=== PATIENT | female | born 1995 | race Caucasian/White ===

== ENCOUNTER 2016-06-07 04:30 | Inpatient (IN) | payer MEDICAID ==
[~2016-06-07] VITALS: Ht 152.4 cm; Wt 90.7 kg
[2016-06-07] MEDS ORDERED: ZOVIRAX400 MG PO (05:16)
[2016-06-07 05:17] VITALS: BP 132/78; Ht 152.4 cm; Wt 90.7 kg
[2016-06-07] MEDS ORDERED: PRENATAL COMPLE1 TAB PO (05:17)
[2016-06-07 05:38] LABS: HEMOGLOBIN 11.2 g/dL (12-16); MCH 28.6 pg (26.0-34.0); MCV 89.3 fL (80.0-100.0); RBC 3.92 10x6/uL (4.00-5.40); RDW 14.1 % (11.5-14.5); WBC 9.4 10x3/uL (4.8-10.8)
[2016-06-07 06:07] LABS: APPEARANCE HAZY (CLEAR); BILIRUBIN NEGATIVE (NEGATIVE); COLOR YELLOW (YELLOW); GLUCOSE NEGATIVE (NEGATIVE); KETONE NEGATIVE (NEGATIVE); LEUKOCYTE ESTERASE TRACE (NEGATIVE); NITRITE NEGATIVE (NEGATIVE); PROTEIN NEGATIVE (NEGATIVE); UROBILINOGEN NORMAL (NORMAL); WHITE CELLS - URINE 0-5 /hpf (0-5)
--- NOTE | 2016-06-07 18:25 | NUR ---
SITTING UP IN BED. REQUESTED PAIN MEDICATION FOR C/O ACHING IN BACK AND ABDOMEN. MOTRIN 600 MG GIVEN PO AFTER DISCUSSING MEDICATION OPTIONS. 07/26 PAIN AT THIS TIME. HAS BEEN UP TO VOID AND HAS USED BETADINE SQUIRT BOTTLE FOR TRELL-CARE. CURRENTLY IN NURSERY. DINNER TRAY SERVED. SIDE RAILS UP X 2, CALL LIGHT IN REACH. TUCKS PADS GIVEN FOR PRN USE ON EXTERNAL HEMORRHOID NOTED AFTER DELIVERY. INSTRUCTED ON USE.
[2016-06-07 19:31] VITALS: BP 124/62
--- NOTE | 2016-06-07 19:31 | NUR ---
AWAKE AND ORIENTED. SKIN WARM AND DRY. LYING ON BACK WITH HOB AT 45 DEGREES. VISITORS IN ROOM HOLDING . PT. CHEERFUL RELATING THAT SHE HAD A "GOOD LABOR AND DELIVERY". BREATH SOUNDS CLEAR AND BOWEL SOUNDS AUDIBLE. FUNDUS FIRM U/U. PT. RELATES THAT SHE FEELS HER BLADDER IS FULL BUT HAS "PUT OFF" GETTING UP. INSTRUCTED PT. ON VOIDING WHENEVER SHE FEELS BLADDER FULLNESS AND ALSO DISCUSSED REASONS. PT. STATES UNDERSTANDING. RELATES THAT MOTRIN WAS EFFECTIVE WITH HER PAIN AND SHE RATES 2 OF 10 AND STATES IT IS OCCASIONAL CRAMPING. DENIES ANY PAIN IN LOWER EXTREMITIES AND HAS GOOD ROM OF ALL EXTREMITIES. INQUIRED IF PT. DESIRED ANY ADDITIONAL WATER OR COLA OR NOURISHMENTS OF ANY KIND. PT. STATES THAT SHE IS OK AT THIS TIME BUT MIGHT LIKE SOMETHING BEFORE BEDTIME. INFORMED TO CALL THIS NURSE WITH ANY NEEDS. FOB IN ROOM WITH PT. GELACIO SHEPHERD.
--- NOTE | 2016-06-07 20:30 | NUR ---
PT. LYING IN BED WITH HOB AT 45 DEGREES. VISITORS AT BEDSIDE. INQUIRED IF PT. HAD BEEN UP TO BATHROOM . SHE STATED THAT SHE HAD. OFFERED NOURISHMENTS ALTHOUGH PT. DECLINED. SIDE RAILS UP X 2.
--- NOTE | 2016-06-07 21:21 | NUR ---
SITTING UP IN BED PREPARING TO BREASFEED. NBN NURSERY IN ROOM GIVING INSTRUCTIONS ON .
--- NOTE | 2016-06-07 22:00 | NUR ---
PT. DESIRES INFANT RETURNED TO NBN. STATES SHE IS READY FOR SOMETHING ELSE TO EAT. AVAILABILITY REVIEWED WITH PT. AND SHE MADE SELECTIONS. PT. ALSO STATES DESIRE TO SHOWER. LINENS PROVIDED.
--- NOTE | 2016-06-07 22:12 | NUR ---
PT. STATES SHE DESIRES TO GO AHEAD WITH PAIN MED AND THEN SHE WILL SLEEP UNTIL INFANT RETURNS. RATES PAIN A 4 OF 10 ON PAIN SCALE.
--- NOTE | 2016-06-07 22:17 | NUR ---
PAIN MED GIVEN ORDERED. EATING ON SANDWICH AND GRAPES PROVIDED EARLIER.
--- NOTE | 2016-06-07 22:50 | NUR ---
CALLED TO ROOM TO EVALUATE PT. BLEEDING. PT. WAS UP IN BATHROOM AND HAD DRIPPED SMALL SPOTS OF BLOOD ON WAY TO BATHROOM. REASSURED PT. THAT DUE TO BLOOD POOLING SHE MAY NOTICE OVERFLOW OF PAD WHEN GETTING UP. PT. DESIRES TO SHOWER. ENCOURAGED TO TAKE TEPID SHOWER AND NOT HOT TO AVOID FEELING FAINT OR DIZZY. FOB IN ROOM WITH PT. PT. DENIES ANY PAIN AT THIS TIME. ENCOURAGED PT. TO WEAR TWO PADS AT A TIME TODAY AND TOMORROW TO AVOID SPILLING OVER. PT. STATES UNDERSTANDING.
--- NOTE | 2016-06-07 23:17 | NUR ---
STANDING AT SINK BRUSHING HAIR. STATES SHE IS PAIN FREE AND FEELS "GOOD". FOB REMAINS IN ROOM. PT. DENIES ANY NEEDS.
--- NOTE | 2016-06-08 00:15 | NUR ---
BABY TO MOTHER'S ROOM FOR FEEDING PER NBN STAFF.
--- NOTE | 2016-06-08 01:00 | NUR ---
PT. HAS COMPLETED AND DESIRES INFANT RETURNED TO NBN. DESIRES TO SLEEP. DENIES ANY PAIN AT THIS TIME. FOB SLEEPING ON SOFA.
--- NOTE | 2016-06-08 02:45 | NUR ---
LYING ON RT. SIDE WITH EYES CLOSED. RESPIRATIONS REGULAR. FOB SLEEPING ON SOFA.
--- NOTE | 2016-06-08 03:20 | NUR ---
INFANT TO ROOM FOR . PT. AWAKENED. ID OF AND MOTHER MATCHED. FOB SLEEPING ON SOFA.
--- NOTE | 2016-06-08 04:10 | NUR ---
INFANT RETURNED TO NBN. PT. DENIES ANY NEEDS. STATES IS WELL. FOB SLEEPING ON SOFA.
[2016-06-08 05:12] LABS: RAPID PLASMA REAGIN Non Reactive (Non Reactive)
--- NOTE | 2016-06-08 06:05 | NUR ---
LYING ON RT SIDE WITH EYES CLOSED. RESPIRATIONS REGULAR. FOB SLEEPING ON SOFA.
--- NOTE | 2016-06-08 06:37 | NUR ---
INFANT TRANSPORTED TO ROOM VIA OPEN CRIB. ID BAND VERIFIED WITH INFANT & MOTHER, INFANT PLACED IN MOTHER'S ARMS FOR FEEDING. DENIES NEEDS AT THIS TIME.
[2016-06-08 06:59] LABS: BASOPHILS 0.2 % (0.0-2.0); EOSINOPHILS 1.7 % (0-7); HEMATOCRIT 33.9 % (36.0-48.0); HEMOGLOBIN 10.7 g/dL (12-16); IMMATURE GRANULOCYTES 0.3 % (0-5); LYMPHOCYTES 19.8 % (15-50); MCH 28.4 pg (26.0-34.0); MCHC 31.6 g/dL (31.0-37.0); MCV 89.9 fL (80.0-100.0); MEAN PLATELET VOLUME 11.8 fL (7.4-10.4); MONOCYTES 6.8 % (2-11); NEUTROPHILS 71.2 % (40-80); PLATELET COUNT 161 10x3/uL (130-400); RBC 3.77 10x6/uL (4.00-5.40); RDW 14.2 % (11.5-14.5); WBC 11.7 10x3/uL (4.8-10.8)
--- NOTE | 2016-06-08 07:00 | NUR ---
SHIFT REPORT RECEIVED.
--- NOTE | 2016-06-08 07:33 | NUR ---
SITTING UP IN BED. JUST FINISHED . REQUEST MOTRIN FOR C/O BACK AND ABDOMINAL CRAMPING 3-08/26. MOTRIN 600 MG GIVEN PO FOR RELIEF. INFANT TO NURSERY FOR ASSESSMENT. REGULAR BREAKFAST SERVED. WILL COMPLETE SHIFT ASSESSMENT AFTER PT FINISHES MEAL. SIDE RAILS UP X 2, CALL LIGHT IN REACH. FOB SLEEPING ON COUCH.
[2016-06-08 08:16] VITALS: BP 131/69
--- NOTE | 2016-06-08 08:25 | NUR ---
SHIFT ASSESSMENT COMPLETED. DISCUSSED TDAP. PT SAYS SHE HAD AFTER LAST BABY. 1/10 ON PAIN SCALE AT THIS TIME. INFANT IN NURSERY. DC TEACHING STARTED. ANTICIPATE DC HOME TODAY.
--- NOTE | 2016-06-08 10:34 | NUR ---
SITTING UP IN BED WITH INFANT IN ARMS. DENIES NEEDING ANYTHING AT THIS TIME. FOB IN ROOM. SIDE RAILS UP X 2 CALL LIGHT IN REACH. INSTRUCTED TO CALL IF ANYTHING IS NEEDED. VERBALIZED UNDERSTANDNG.
[2016-06-08] MEDS ORDERED: IBUPROFEN600 MG PO (12:40)
[2016-06-08] MEDS ORDERED: PERCOCET 5-3251 TAB PO (12:40)
--- NOTE | 2016-06-08 13:25 | NUR ---
DC TEACHING COMPLETED INCLUDING VERBAL AND WRITTEN INFORMATION ON ROUTING PP CARE, PP DEPRESSIONS, S&S INFECTION, PERICARE, /BREASTCARE, MEDICATION ADMINISTRATION AND FOLLOW UP. NO QUESTIONS ASKED AT THIS TIME. DOES REQUEST PERCOCET 5MG FOR 5/10 PAIN WHEN MOVING AROUND, MOSTLY IN BACK AND ABDOMEN- ACHING/CRAMPING. AND FOB IN ROOM. PLANS SHOWER PRIOR TO DC. SALINE LOCK REMOVED FROM RIGHT WRIST, INTACT.
--- NOTE | 2016-06-08 13:33 | NUR ---
AMBULATING IN ROOM. PERCOCET 5 MG GIVEN PO FOR RELIEF OF PAIN. PATIENT HAS PRESCRIPTIONS AND INSTRUCTED THAT SHE CAN TAKE NEXT PERCOCET IN 4 HOURS IF NEEDED. VERBALIZED UNDERSTANDING. PLANS SHOWER NOW. WILL DC VIA WHEELCHAIR TO CAR WHEN DISCHARGE.
--- NOTE | 2016-06-08 15:00 | NUR ---
1/10 ON PAIN SCALE. READY FOR DC HOME. INFANT IN CARSEAT, FOB ASSISTING. HAS ALL BELONGS. DC'D VIA WHEELCHAIR TO CAR.
== END 2016-06-08 15:00 | disposition home or self-care (01) | DRG 774 ==
LOC: D.LD 04:30
PROVIDERS: ADMIT Specialist
PROC: 10E0XZZ Delivery of Products of Conception, External Approach (ICD-10-PCS; principal; 2016-06-07)
DX: O99.214 Obesity complicating childbirth (principal); O98.52 Other viral diseases complicating childbirth; Z3A.39 39 weeks gestation of pregnancy; Z37.0 Single live birth; O70.0 First degree perineal laceration during delivery; B00.9 Herpesviral infection, unspecified; O69.81X0 Labor and delivery complicated by cord around neck, without compression, not applicable or unspecified